=== PATIENT | male | born 1965 | race Two or more races ===

== ENCOUNTER 2024-08-15 14:14 | Emergency (ER) | payer BC, SELFPAY ==
[2024-08-15 14:20] VITALS: BP 147/86; PULSE 85; RESP 20; TEMP 37.1; O2SAT 96
--- NOTE | 2024-08-15 14:29 | EDNOTE_ITS ---
ED Allergic Reaction RME/HPI General Chief complaint: Allergic Reaction Stated complaint: BEE STING W/FACIAL SWELLING Time Seen by Provider: 08/15/24 14:32 Arrival date/time: 08/15/24 14:14 RME / HPI RME / HPI narrative: 58-year-old male patient was brought in by family for evaluation regarding bee sting allergy. Apparently patient was working and got stung by a bee in his face, resulting into swelling, redness, with feels like throat is closing. Patient denies any shortness of breath. Patient also complains of itchiness. Patient had a history of bee sting allergy in the past but not as bad as today. No medication was given prior to arrival. Related Data Previous Rx's ?Medication ?Instructions ?Recorded diphenhydramine HCl 25 mg capsule 50 mg (2 x 25 mg) PO TID PRN 08/15/24 (Benadryl) allergic reaction #30 caps epinephrine 0.3 mg/0.3 mL 0.3 ml subcut .once PRN 07/29 12/22 injection, auto-injector hypersensitivity reaction #2 ea Allergies Allergy/AdvReac Type Severity Reaction Status Date / Time No Known Allergies Allergy Verified 08/15/24 14:17 Review of Systems Review of Systems Narrative Review of Systems: Review of system reviewed and within normal limits except mentioned in HPI ED Exam Narrative Physical exam: VITAL SIGNS: Reviewed. GENERAL APPEARANCE: Alert and interactive, follows commands, no acute distress, HEAD AND FACE: Facial swelling, erythema, lip swelling,, periorbital swelling, ENT: PERRL, pink conjunctivitis, eyelid no trauma, Mucous membrane moist. NECK: Supple, nontender, no nuchal rigidity. CHEST: No tenderness, no crepitus, no paradoxical movement, no retractions. LUNGS: Clear, well ventilated, symmetric, no rales, no wheezing, no ronchi, no stridor, good breath sounds bilaterally. HEART: Regular rate, regular rhythm, no murmur, no gallops. ABDOMEN: Soft, positive bowel sounds, nondistended, no guarding, nontender, no rebound, no masses, RECTAL: Deferred. GENITAL: Deferred. NEUROLOGICAL: Gross motor function intact sensory function intact, Appropriate for age. MUSCULOSKELETAL: low back nontender, full range of motion. EXTREMITIES: Nontender, full range of motion. SKIN: Color pink, dry, no rash, no lacerations, no abrasions, no contusions. LYMPHATICS: Deferred. Course Quality Measures none Orders Category Date Time Status DiphenhydrAMINE INJ [Benadryl Inj] Med 08/15/24 14:28 Discontinued 50 mg IV X1 ONE EPINEPHrine Inj [Adrenalin Inj] Med 08/15/24 14:28 Discontinued 0.5 mg IM X1 ONE Famotidine Inj [Pepcid Inj] Med 08/15/24 14:28 Discontinued 20 mg IVP X1 ONE MethylPREDNISolone.* [SoluMEDROL Inj] Med 08/15/24 14:28 Discontinued 125 mg IVP X1 ONE Vital Signs Vital signs: Vital Signs Temperature 98.7 F 08/15/24 14:20 Pulse Rate 85 08/15/24 14:20 Respiratory Rate 20 08/15/24 14:20 Blood Pressure 147/86 H 08/15/24 14:20 Pulse Oximetry (%) 96 08/15/24 14:20 Oxygen Delivery Method Room Air 08/15/24 14:20 Allergic Reaction MDM Narrative MDM Narrative:: 58-year-old male patient was brought in by family for evaluation regarding bee sting allergy. Apparently patient was working and got stung by a bee in his face, resulting into swelling, redness, with feels like throat is closing. Patient denies any shortness of breath. Patient also complains of itchiness. Patient had a history of bee sting allergy in the past but not as bad as today. No medication was given prior to arrival. Patient received epinephrine IM, Solu-Medrol IV Pepcid IV and Benadryl IV with complete resolution of symptoms. Patient data External records reviewed:: None Clinical information provided by:: patient and family Social determinants that could affect healthcare access:: none Patient has the following chronic illnesses:: None How is presenting disease/condition affected by chronic disease/condition?: no chronic disease Evaluation data The following diagnostics were reviewed and interpreted by me:: other (specify) Lab and/or radiology exams considered but not ordered:: None Interpretation Summary: None Medications / Prescriptions Medications or Prescriptions considered but not ordered:: None Medication administrations:: Medication Administration History Discontinued Medications Diphenhydramine HCl (Diphenhydramine Inj 50 Mg/Ml Vial) 50 mg IV X1 ONE Stop: 08/15/24 14:29 Last Admin: 08/15/24 14:38 Dose: 50 mg Documented By: DO Epinephrine HCl (Epinephrine Inj 1 Mg/Ml Amp) 0.5 mg IM X1 ONE Stop: 08/15/24 14:29 Last Admin: 08/15/24 14:47 Dose: 0.5 mg Documented By: DO Famotidine (Famotidine Inj 10 Mg/Ml Vial 2 Ml) 20 mg IVP X1 ONE Stop: 08/15/24 14:29 Last Admin: 08/15/24 14:34 Dose: 20 mg Documented By: DO Methylprednisolone Sodium Succinate (Methylprednisolone Sod Succ 62.5 Mg/Ml 2ml Vial) 125 mg IVP X1 ONE Stop: 08/15/24 14:29 Last Admin: 08/15/24 14:37 Dose: 125 mg Documented By: DO Methylprednisolone IV, Pepcid, epinephrine, and Benadryl Consultations Consultation(s) initiated? (list below): No Diagnosis Differential Diagnosis allergic reaction: anaphylaxis and allergic reaction Most likely diagnosis given after review of the tests above:: Bee sting allergy Admission Indicated Admission indicated?: not indicated Admission Request Was there a request for admission?: No Disposition Plan Disposition Plan: Discharge Discharge Attestation Discharge Attestation: The patient and all family members were given an opportunity to ask questions and understood the discharge instructions. Discharge instructions specifically effects, indications for sooner follow up or return to the emergency department, and the expected course of current diagnosis. Patient condition: Stable Discharge Plan Plan Patient Disposition: HOME (Self Care) Disposition Comment: stable Prescriptions/Referrals Prescriptions/Med Rec: New epinephrine 0.3 mg/0.3 mL auto-injector 0.3 ml subcut .once PRN (Reason: hypersensitivity reaction) Qty: 2 0RF diphenhydramine HCl [Benadryl] 25 mg capsule 50 mg PO TID PRN (Reason: allergic reaction) Qty: 30 0RF Referrals: Terri Penaloza PA-C [Primary Care Provider] - In 1 week Problem List Clinical Impression: Allergic reaction to bee sting Patient/Caregiver Discharge Instructions Discharge Activity: activity as tolerated Education Materials: ED BEE STING General Allergic Rxn Additional Instructions: Thank you for the opportunity for serving you today. You are stable for discharged . You are advised to: Follow-up with your PCP in 1 to 2 days Return to ED for worsening of symptoms Increase oral fluids Take medication as prescribed Print Language: French Stand Alone Forms: [employer] Award Info., Patient Portal Info Letter
[2024-08-15] MEDS: FAMOTIDINE INJ 10 MG/ML VIAL 2 ML 20 MG IVP (14:34)
[2024-08-15] MEDS: MethylPREDNISolone SOD SUCC 62.5 MG/ML 2ML VIAL 125 MG IVP (14:37)
[2024-08-15] MEDS: DiphenhydrAMINE INJ 50 MG/ML VIAL IV (14:38)
[2024-08-15 14:47] VITALS: BP 138/83; PULSE 65
[2024-08-15] MEDS: EPINEPHrine INJ 1 MG/ML AMP 0.5 MG IM (14:47)
[2024-08-15 16:00] VITALS: BP 130/70; PULSE 66; RESP 18; TEMP 37; O2SAT 92
[2024-08-15 17:49] VITALS: BP 118/79; PULSE 67; RESP 18; O2SAT 96
== END 2024-08-15 18:04 | disposition home or self-care (01) ==
PROVIDERS: Emergency Provider Emergency Medicine; PCP Physician Assistant
DX: T63.441A Toxic effect of venom of bees, accidental (unintentional), initial encounter (principal); Z91.030 Bee allergy status
CPT/HCPCS: 96372; 96374; 96375; 99284; J0171; J1200; J2919; J3490